=== PATIENT | male | born 1950 | race Caucasian/White ===

== ENCOUNTER → 2020-03-21 | Outpatient (CLI) | payer MEDICARE ==
[~2020-03-21] MED LIST: ACET325 PO; DOCU100 PO; DULO30 PO; LAVAP17G PO; LEVSOD50 PO; MAGCHL64ER PO; NAPR250 PO
== END | disposition home or self-care (01) ==
LOC: LAB SHORT 10:27 → PLD 10:27
DX: C44.319 Basal cell carcinoma of skin of other parts of face (principal); D04.61 Carcinoma in situ of skin of right upper limb, including shoulder
CPT/HCPCS: 88305